=== PATIENT | female | born 1975 | race Caucasian/White ===

== ENCOUNTER 2017-02-05 07:28 | Outpatient (CLI) | payer OTHER ==
--- NOTE | 2017-02-05 09:41 | MRI ---
MRI OF CERVICAL SPINE WITHOUT CONTRAST: DATE: 05/08/16. COMPARISON: None. HISTORY: Neck strain, trauma, pain, injury. TECHNIQUE: Multiplanar, multisequence MR imaging of the cervical spine provided without contrast. FINDINGS: The sagittal STIR imaging demonstrates no focal area of osseous marrow edema. No anterolisthesis or retrolisthesis noted within the cervical spine. The prevertebral soft tissues demonstrate no abnor mality. The craniocervical junction and cervicothoracic junction appears intact. C2-3: No central canal or neural foraminal stenosis. C3-4: No central canal or neural foraminal stenosis. C4-5: Mild disk space narrowing and disk desiccation. Mild uncovertebral osteophyte formation note d on the right with no significant central canal or neural foraminal stenosis. C5-6: There is disk space narrowing and disk desiccation with mild disk bulge partially effacing th e ventral thecal sac and causing minimal central canal stenosis. Mild left-sided uncovertebral oste ophyte formation noted with no significant central canal or neural foraminal stenosis. C6-7: Minimal disk bulge with mild disk space narrowing and disk desiccation. No central canal or neural foraminal stenosis. C7-T1: No central canal or neural foraminal stenosis. No focal area of abnormal signal intensity is seen within the cervical cord. IMPRESSION: Mild degenerative disk changes. No significant central canal or neural foraminal stenosis. POS: [facility]
== END 2017-02-05 07:29 | disposition home or self-care (01) ==
LOC: MRI 07:28
PROVIDERS: ATTEND Family Medicine
DX: S16.1XXD Strain of muscle, fascia and tendon at neck level, subsequent encounter (principal); M50.30 Other cervical disc degeneration, unspecified cervical region
CPT/HCPCS: 72141